=== PATIENT | female | born 1955 | race Caucasian/White ===

== ENCOUNTER 2024-01-03 13:06 | Outpatient (CLI) | payer MEDICARE, SELFPAY ==
--- NOTE | ~2024-01-03 | CT_ITS ---
CT Scan of the Chest without Contrast: Clinical Indication: Lung cancer screening, nicotine dependence Technique: Contiguous sections were acquired throughout the chest without intravenous contrast. Dose reduction technique was used on this scan by utilizing automated exposure control and iterative recon struction technique. The dose-length product (DLP) was 68.69 mGy-cm. Findings: There is no evidence of any significant mediastinal, hilar or axillary lymphadenopathy. The mediastin al soft tissues appear normal. There is no evidence of pleural or pericardial effusion. There is a 2.7 x 2.2 cm bubbly, pseudocavitary lesion in the right upper lobe (axial image 20), suspi cious for bronchoalveolar cell carcinoma. There are 2 distinct 5 mm groundglass opacities in the left upper lobe (axial images 26, 30). Images through the upper abdomen reveal no abnormalities. Impression: Lung RADS 4A: Suspicious. Consider 3 month follow-up CT and/or PET/CT. 2.7 x 2.2 cm lesion right upper lobe, suspicious for bronchoalveolar cell carcinoma, typically indole nt lesion. Thoracic surgical consultation advised. Additional subcentimeter groundglass opacities, indeterminate, as above. Reviewed, dictated and finalized at location M. Impression: Lung RADS 4A: Suspicious. Consider 3 month follow-up CT and/or PET/CT. 2.7 x 2.2 cm lesion right upper lobe, suspicious for bronchoalveolar cell carci noma, typically indolent lesion. Thoracic surgical consultation advised. Additional subcentimeter groundglass opacities, indeterminate, as above.
== END 2024-01-03 13:07 | disposition home or self-care (01) ==
LOC: ANHIMG 13:07
PROVIDERS: PCP Nurse Practitioner Adult Health; Visit Provider Nurse Practitioner Adult Health
DX: Z12.2 Encounter for screening for malignant neoplasm of respiratory organs (principal); Z87.891 Personal history of nicotine dependence; R91.8 Other nonspecific abnormal finding of lung field
CPT/HCPCS: 71271

== ENCOUNTER 2024-01-06 13:40 | Outpatient (CLI) | payer MEDICARE, SELFPAY ==
--- NOTE | ~2024-01-06 | PE_ITS ---
EXAMINATION: PET skull to mid thigh DATE: 01/06/2024 15:24 INDICATION: Other nonspecific abnormal finding of lung field. Lung nodule. TECHNIQUE: 9.972 mCi of 18-fluorodeoxyglucose (18-FDG) was administered i.v. Low dose computed tomog azar (CT) images were acquired from the base of the brain to the proximal thighs for attenuation cor rection and anatomic localization. Automated exposure control was employed. Dose-length product (DLP) was 796 mGy-cm. Positron emission tomography (PET) images were acquired in the same distribution. COMPARISON: Chest CT 01/03/2024 FINDINGS: Head/neck: There are no pathologically enlarged lymph nodes. Chest: There is mild emphysema. In the right upper lobe, there is a 2.2 cm part-solid nodule with 3 m m solid component with maximum SUV of 2.2. No pleural effusion. The heart size is normal. There are c oronary artery calcifications. No pericardial effusion. Calcified left hilar mediastinal lymph nodes are consistent with old granulomas disease. Abdomen/pelvis/proximal thighs: There is diffuse hepatic steatosis. Calcifications in the liver and s pleen are consistent with old granulomatous disease. The gallbladder, pancreas, adrenal glands, and k idneys are normal. There is diverticulosis of the colon without evidence of diverticulitis. The appen lm is normal. There are no dilated loops of bowel. There are no pathologically enlarged lymph nodes. There is no free intraperitoneal fluid. There are bilateral inguinal hernias containing fat. Epidura l electrodes are noted. There is no osseous malignancy. IMPRESSION: 1. 2.2 cm part-solid nodule with 3 mm solid component with maximum SUV of 2.2, probably benign. Nonco ntrast low-dose chest CT is recommended in 6 months. Reviewed, dictated and finalized at location A. IMPRESSION: 1. 2.2 cm part-solid nodule with 3 mm solid component with maximum SUV of 2.2, probably benign. Noncontrast low-dose chest CT is recommended in 6 months.
[2024-01-06 13:59] LABS: Glucose Point of Care 119 mg/dl (65-105)
== END 2024-01-06 13:41 | disposition home or self-care (01) ==
LOC: ANHIMG 13:41
PROVIDERS: PCP Nurse Practitioner Adult Health; Visit Provider Nurse Practitioner Adult Health
DX: R91.8 Other nonspecific abnormal finding of lung field (principal)
CPT/HCPCS: 78815; A9552

== ENCOUNTER 2024-01-27 09:02 | Outpatient (CLI) | payer MEDICARE, SELFPAY ==
--- NOTE | 2024-01-27 12:29 | WPDPFTINT ---
PFT Procedure Performed PFT Procedure Performed Plethysmography (Lung Vol) Diffusing Cap (DLCO) Flow Vol Loop Spirometry w/o Bronchodil PFT Interpretation This is a pulmonary function test with spirometry, plethysmography and diffusing capacity. The test was performed and results interpreted in accordance with the 2019 and 2005 ATS/ERS Task Force guidelines respectively using the Global Lung Function Initiative-2012 reference equations. Patient demonstrated good effort and cooperation. Reproducibility criteria were met. The quality of the spirometry maneuver was Grade A. Findings: Spirometry: There is decreased maximal expiratory airflow at low lung volumes with concave expiratory flow tracing. The contour the inspiratory flow tracing is normal. The FVC is 2.77 L, 101% predicted. The FEV1 is 1.74 L, 81% predicted. The FEV1: FVC ratio 63%. Plethysmography: The total lung capacity is 4.56 L, 93% predicted. The functional residual capacity is 2.09 L, 75% predicted. The residual volume is 1.77 L, 83% predicted. Diffusing capacity: The diffusing capacity unadjusted for hemoglobin and carboxyhemoglobin is 11.6, 58% predicted. The diffusing capacity adjusted for alveolar volume is 2.95, 68% predicted. Impression: There is a mild obstructive abnormality with a normal FEV1. The lung volumes are normal. The diffusing capacity unadjusted for hemoglobin and carboxyhemoglobin is moderately decreased and remains mildly decreased when adjusted for alveolar volume. There are no prior studies for comparison
== END 2024-01-27 09:03 | disposition home or self-care (01) ==
PROVIDERS: PCP Nurse Practitioner Adult Health; Visit Provider Nurse Practitioner Adult Health
DX: R91.8 Other nonspecific abnormal finding of lung field (principal); R94.2 Abnormal results of pulmonary function studies
CPT/HCPCS: 94375; 94726; 94729